=== PATIENT | male | born 1985 | race African-American/Black ===

== ENCOUNTER 2017-02-06 12:19 | Emergency (ER) | payer OTHER ==
[~2017-02-06] VITALS: Ht 167.6 cm; Wt 71.2 kg
[~2017-02-06 12:19] MED LIST: OSEL75CA PO; PRED20TA PO
[2017-02-06 12:46] VITALS: BP 108/57
--- NOTE | 2017-02-06 12:57 | RAD ---
3 views left wrist 02/06/2017 Clinical indication: Left wrist pain. Comparison: None. Findings: No acute fracture or traumatic malalignment. Joint spaces are maintained. Normal alignment of the carpus. The soft tissues are unremarkable. Impression: No acute cardiopulmonary abnormality.
[2017-02-06] MEDS ORDERED: HYDR-2758 PO (13:06)
--- NOTE | 2017-02-06 13:06 | PHYS DOC ---
Past Medical History Past Medical History: No Pertinent History Past Surgical History: Other Additional Past Surgical Histo: LT ACL REPAIR 08/08 Alcohol Use: None Drug Use: None Adult General Chief Complaint Chief Complaint: WRIST PAIN HPI HPI 31-year-old male presenting to the emergency department today with left wrist pain that is sharp moderate intermittent. It started yesterday after he was taken trash out when he heard a pop. He denies any numbness weakness or tingling. His pain is on the lateral part of his left wrist. Nonradiating. Review of systems is negative for elbow pain or shoulder pain. He denies any recent trauma. He denies head injury. All other review of systems is negative unless otherwise noted in history of present illness. ED course: 31-year-old gentleman with left wrist pain after taking out the trash. Vitals unremarkable. Exam unremarkable. X-ray normal. Patient discharged home in a wrist splint with a few opioids but primarily treated with ibuprofen for pain control to follow up with his doctor in the next 2-3 days. The patient was then discharged home in stable condition. They were to return if their symptoms worsened or if they were concerned for any reason. [id number] discharge instructions and return precautions were given. Patient's questions were answered to their satisfaction. Patient is comfortable plan. Review of Systems Review of Systems SEE ABOVE. Allergies Allergies Allergies Coded Allergies Type Severity Reaction Last Updated Verified No Known Drug Allergies 10/30/15 No Physical Exam Physical Exam SEE ABOVE Constitutional: Well developed, well nourished, no acute distress, non-toxic appearance. [] HENT: Normocephalic, atraumatic, bilateral external ears normal, oropharynx moist, no oral exudates, nose normal. Eyes: PERRLA, EOMI, conjunctiva normal, no discharge. [] Neck: Normal range of motion, no tenderness, supple, no stridor. Cardiovascular:Heart rate regular rhythm, no murmur [] Lungs & Thorax: Bilateral breath sounds clear to auscultation [] Abdomen: Bowel sounds normal, soft, no tenderness, no masses, no pulsatile masses. Skin: Warm, dry, no erythema, no rash. [] Back: No tenderness, no CVA tenderness. Extremities: No tenderness, no cyanosis, no clubbing, ROM intact, no edema. Left upper extremity is normal in appearance with normal color. 2 second cap refill. Mild tenderness to lateral wrist. No ecchymosis or laceration. Nontender hand. Nontender scaphoid. Nontender elbow with normal range of motion of the elbow. Neurologic: Alert and oriented X 3, normal motor function, normal sensory function, no focal deficits noted. [] Psychologic: Affect normal, judgement normal, mood normal. [] Current Patient Data Vital Signs Vital Signs Date Time Temp Pulse Resp B/P (MAP) Pulse Ox O2 Delivery O2 Flow Rate FiO2 02/06/17 12:46 98.4 78 18 98 Room Air 98.4 EKG EKG [] Radiology/Procedures Radiology/Procedures [] Course & Med Decision Making Course & Med Decision Making Pertinent Labs and Imaging studies reviewed. (See chart for details) [] Dragon Disclaimer Dragon Disclaimer This electronic medical record was generated, in whole or in part, using a voice recognition dictation system. Departure Departure Impression: Primary Impression: Left wrist pain Disposition: HOME, SELF-CARE Condition: STABLE Referrals: NO PCP (PCP) Patient Instructions: Wrist Pain, [id number] Additional Instructions: Thank you for allowing us to participate in your care today. Followup with your primary care physician in 3 days if your symptoms do not improve. Call your Primary Doctor tomorrow and inform them of your visit today. If you do not have a primary care provider you can ask for a list of our primary care providers. Return to the emergency department you have any new or concerning findings. This should be evaluated by the primary care physician and any necessary consulting services for continued management within a few days after discharge. Return to emergency room if you have any new or concerning symptoms including but not limited to fever, chills, nausea, vomiting, intractable pain, any new rashes, chest pain, shortness of air, uncontrolled bleeding, difficulty breathing, and/or vision loss. You may have been prescribed medication that can change in your level of thinking and ability to operate machinery. These medications include hydrocodone and Ativan. Also, Benadryl has been known to do this as well. Be sure to check with your pharmacist and ask if the medications you've prescribed can affect your level of consciousness. I recommend not operating heavy machinery or driving while on medication such as these. Scripts Hydrocodone Bit/Acetaminophen (HYDROCODONE-APAP 5-325 ) 1 Each Tablet 1 TAB PO PRN Q8HRS Y for SEVERE PAIN, #4 TAB 0 Refills Prov: XAVIER BAEZA MD 02/06/17 XAVIER BAEZA MD Feb 06, 2017 13:06
== END 2017-02-06 13:16 | disposition home or self-care (01) ==
LOC: ER 12:19
DX: M25.532 Pain in left wrist (principal)
CPT/HCPCS: 29125; 73110; 99284-25

== ENCOUNTER 2018-07-28 07:26 | Emergency (ER) | payer SELFPAY ==
[~2018-07-28] VITALS: Ht 167.6 cm; Wt 72.6 kg
[~2018-07-28 07:26] MED LIST changes: +HYDR-2761 PO
[2018-07-28 07:30] VITALS: BP 117/83
[2018-07-28] MEDS ORDERED: NAPR-682 PO (07:59)
--- NOTE | 2018-07-28 08:00 | PHYS DOC ---
Past Medical History Past Medical History: No Pertinent History Past Surgical History: Other Additional Past Surgical Histo: L ACL/MCL repair Alcohol Use: Occasionally Drug Use: None Adult General Chief Complaint Chief Complaint: KNEE INJURY HPI HPI Patient is a 33 year old male presented to ER today for evaluation of right knee pain. Patient has history of ACL tear on the right knee, no prepare yet. He woke up this morning, when he get out of his bed, his right knee TWISTED. Patient IS having pain , not able to walk due to pain. Patient said he hopped in here. Patient denies any ankle pain. Review of Systems Review of Systems Constitutional: Denies fever or chills [] Eyes: Denies change in visual acuity, redness, or eye pain [] HENT: Denies nasal congestion or sore throat [] Respiratory: Denies cough or shortness of breath [] Cardiovascular: No additional information not addressed in HPI [] GI: Denies abdominal pain, nausea, vomiting, bloody stools or diarrhea [] : Denies dysuria or hematuria [] Musculoskeletal: Denies back pain, POSITIVE FOR RIGHT KNEE PAIN Integument: Denies rash or skin lesions [] Neurologic: Denies headache, focal weakness or sensory changes [] Endocrine: Denies polyuria or polydipsia [] All other systems were reviewed and found to be within normal limits, except as documented in this note. Allergies Allergies Allergies Coded Allergies Type Severity Reaction Last Updated Verified No Known Drug Allergies 07/28/18 No Physical Exam Physical Exam Constitutional: Well developed, well nourished, no acute distress, non-toxic appearance. [] HENT: Normocephalic, atraumatic, bilateral external ears normal, oropharynx moist, no oral exudates, nose normal. [] Eyes: PERRLA, EOMI, conjunctiva normal, no discharge. [] Neck: Normal range of motion, no tenderness, supple, no stridor. [] Cardiovascular:NOT DONE Lungs & Thorax: NOT DONE Abdomen:NOT DONE Skin: Warm, dry, no erythema, no rash. [] Back: No tenderness, no CVA tenderness. [] Extremities: THERE IS TENDERNESS TO PALPATION ON THE LATERAL PART OF RIGHT KNEE, NO SWELLING, KNEE JOINT STABLE. no cyanosis, no clubbing, ROM intact, no edema. [] Neurologic: Alert and oriented X 3, normal motor function, normal sensory function, no focal deficits noted. [] Psychologic: Affect normal, judgement normal, mood normal. [] Current Patient Data Vital Signs Vital Signs Date Time Temp Pulse Resp B/P (MAP) Pulse Ox O2 Delivery O2 Flow Rate FiO2 07/28/18 07:30 98.4 110 18 117/83 (94) 98 Room Air 98.4 EKG EKG [] Radiology/Procedures Radiology/Procedures XR OF RIGHT KNEE: NO FRACTURE OR DISLOCATION. Course & Med Decision Making Course & Med Decision Making Pertinent Labs and Imaging studies reviewed. (See chart for details) [] Dragon Disclaimer Dragon Disclaimer This electronic medical record was generated, in whole or in part, using a voice recognition dictation system. Departure Departure Impression: Primary Impression: Right knee sprain Disposition: 01 HOME, SELF-CARE Condition: STABLE Referrals: NEIDA VERA (PCP) FOLLOW UP WITH YOUR DOCTOR FOR OUTPATIENT EVALUATION WITH MRI OF YOUR RIGHT KNEE. Patient Instructions: Knee Sprain Scripts Naproxen Sodium (ANAPROX DS) 550 Mg Tablet 1 TAB PO PRN Q12HRS, #30 TAB Prov: YULISSA FUENTES DO 07/28/18 YULISSA FUENTES DO Jul 28, 2018 08:00
--- NOTE | 2018-07-28 08:37 | RAD ---
EXAM: RIGHT KNEE, 3 VIEWS. HISTORY: Lateral right knee pain after twisting injury. COMPARISON: None. FINDINGS: No fractures are identified. Joint spaces are maintained. There is a small osteophyte along the lateral compartment. Alignment is normal. There is no joint effusion. IMPRESSION: 1. No fracture. Possible early lateral compartmental osteoarthritis. MRI could further assess for internal derangement if there is persistent concern.. Electronically signed by: Antione Mayo MD (07/28/2018 8:33 AM) [facility]
== END 2018-07-28 08:15 | disposition home or self-care (01) ==
LOC: ER 07:26
DX: S83.8X1A Sprain of other specified parts of right knee, initial encounter (principal); X50.1XXA Overexertion from prolonged static or awkward postures, initial encounter; Y93.89 Activity, other specified; Y92.89 Other specified places as the place of occurrence of the external cause; Y99.8 Other external cause status
CPT/HCPCS: 29505; 73562; 99284